=== PATIENT | female | born 1970 | race Caucasian/White ===

== ENCOUNTER 2018-01-28 06:23 | Emergency (ER) | payer SELFPAY ==
[~2018-01-28] VITALS: Ht 152.4 cm; Wt 94.0 kg
[2018-01-28] MEDS ORDERED: ZITHROMAX Z-PA250 MG PO (09:52)
[2018-01-28 10:08] VITALS: BP 139/87
== END 2018-01-28 10:08 | disposition home or self-care (01) ==
LOC: EME 06:23
PROVIDERS: Emergency Medicine
DX: J40 Bronchitis, not specified as acute or chronic (principal); J06.9 Acute upper respiratory infection, unspecified; F17.200 Nicotine dependence, unspecified, uncomplicated
CPT/HCPCS: 71046; 87502; 99281; 99284